=== PATIENT | male | born 1940 | race African-American/Black ===

== ENCOUNTER 2016-10-09 15:26 | Emergency (ER) | payer BC, MEDICARE ==
[~2016-10-09] VITALS: Ht 185.4 cm; Wt 101.6 kg
[~2016-10-09 15:26] MED LIST: ACYCLOVIR400 MG ORAL; AZITHROMYCIN250 MG ORAL; CATAPRES0.2 MG ORAL; GLIMEPIRIDE1 MG ORAL; IBUPROFEN600 MG ORAL; TRIAMTERENE-HC1 EAC7 ORAL; ZOFRAN ODT4 MG ORAL
[2016-10-09 15:46] VITALS: BP 175/98
[2016-10-09] MEDS ORDERED: IBUPROFEN600 MG ORAL (15:58)
[2016-10-09] MEDS ORDERED: ROBAXIN-750750 MG PO (15:58)
[2016-10-09 16:02] VITALS: BP 167/89
--- NOTE | 2016-10-09 22:11 | Emergency Room Report ---
History of Present Illness General Chief Complaint: Back Pain-No Injury Source: Patient Present Illness HPI The patient is a 75-year-old male presenting with left upper back pain which began one week prior for no known reason. Patient denies prior injury to this area. It is described as a 5/10 dull ache it is worse with movement of the left arm. He does state that he stretches often and may have pulled a muscle. He denies any other symptoms including fever, chills, chest pain, shortness of breath, diaphoresis, rash Allergies: Coded Allergies: NO KNOWN DRUG ALLERGIES (Verified Allergy, Unknown, 07/10/15) Patient History Past Medical History: see triage record Pertinent Family History: none Reviewed Nursing Documentation: PMH: Agreed, PSxH: Agreed Nursing Documentation-PMH Past Medical History: No History, Except For Hx Hypertension: Yes Hx Diabetes: Yes Hx Dialysis: No Hx Neurological Problems: No - Lt shoulder surgery in 1999(after fall) Hx Cerebrovascular Accident: No Review of Systems All Other Systems: negative except mentioned in HPI Physical Exam Vital Signs Date Time Temp Pulse Resp B/P Pulse Ox O2 Delivery O2 Flow Rate FiO2 10/09/16 15:36 97.9 81 16 175/98 100 Room Air Sp02 EP Interpretation: reviewed, normal General Appearance: no apparent distress, alert, GCS 15, non-toxic Head: normocephalic, atraumatic Eyes: bilateral eye PERRL, bilateral eye normal inspection Respiratory: chest non-tender, lungs clear, normal breath sounds, speaking full sentences Cardiovascular #1: regular rate, rhythm, no edema Musculoskeletal: normal inspection, back normal, normal range of motion, tender - L Latissimus dorsi Neurologic: alert, oriented x3, responsive, motor strength/tone normal, sensory intact, speech normal Psychiatric: judgement/insight normal, memory normal, mood/affect normal, no suicidal/homicidal ideation Skin: normal color, no rash, warm/dry, well hydrated Medical Decision Making PA Attestation Dr. Johnson is my supervising physician. Patient management was discussed with my supervising physician Diagnostic Impression: Primary Impression: Muscle spasm ER Course The patient is a 75-year-old male presenting with left upper back pain Ddx considered include but not limited to sprain/strain, fracture, contusion, muscle spasm Physical exam: No apparent distress There is tenderness to palpation over the left latissimus dorsi. Full active range of motion of the left arm. No rash. No edema. No midline tenderness The patient will be discharged home with a prescription for Motrin and Robaxin. ER precautions are given Last Vital Signs Date Time Temp Pulse Resp B/P Pulse Ox O2 Delivery O2 Flow Rate FiO2 10/09/16 16:02 97.9 76 16 167/89 100 Room Air Status: improved Disposition: HOME, SELF-CARE Condition: Improved Scripts Methocarbamol* (ROBAXIN-750*) 750 Mg Tablet 750 MG PO TID, #21 TAB 0 Refills Prov: JOHANNE DÍAZ.AKatelin 10/09/16 Ibuprofen* (MOTRIN*) 600 Mg Tablet 600 MG ORAL Q6H Y for For Pain, #30 TAB Prov: JOHANNE DÍAZ 10/09/16 Referrals: NOT CHOSEN IPA/MD,REFERRING Patient Instructions: Back Pain, Adult Additional Instructions: I discussed my findings with the patient. All questions and concerns have been answered. Treatment and medication compliance have been addressed. I advised the patient that they need to follow up with PMD in 3-5 days. Return to ED if pain remains or worsens, numbness or tingling occurs, new rash is noticed, fever is noticed, or if needed for any reason. Patient verbalized understanding of discharge instructions. JOHANNE DÍAZ October 09, 2016 22:11
== END 2016-10-09 16:20 | disposition home or self-care (01) ==
LOC: EMR 16:05
DX: M62.830 Muscle spasm of back (principal); M54.9 Dorsalgia, unspecified; I10 Essential (primary) hypertension; E11.9 Type 2 diabetes mellitus without complications
CPT/HCPCS: 99284